=== PATIENT | male | born 1965 | race Hispanic/Latino ===

== ENCOUNTER 2017-08-03 16:06 | Outpatient (CLI) | payer BC ==
--- NOTE | 2017-08-04 08:05 | MRI ---
MRI OF LEFT KNEE PERFORMED WITHOUT CONTRAST ENHANCEMENT: HISTORY: Left knee pain x 1 year. FINDINGS: The anterior as well as posterior cruciate ligaments are intact. The lateral meniscus has a normal shape and appearance. There are fairly pronounced arthritic changes of the medial compartment of the knee. There is marked articular cartilage loss and there is joint space narrowing. There is also increased intrameniscal signal change within the posterior horn and body of the medial meniscus consistent with some internal mucoid degeneration and there is meniscal protrusion which would be compatible with loss of hoop str ength. There is subtle truncation and irregularity to the meniscal root. There is probably a small radial tear present in this region. In addition, the meniscocapsular junction of the posterior horn is very indistinct and shows increased signal change and near the junction of the posterior horn and body region there appears to be a more peripheral tear which occurs almost at the meniscocapsular jena ction and I believe that this tear actually extends from the superior articular surface into the junc tion of the posterior horn and body region of the meniscus. The medial and lateral collateral ligaments and iliotibial band regions are unremarkable. The patellar articular cartilage is intact. The median and lateral patellar retinaculum and quadrice ps and patellar tendons are normal. IMPRESSION: Marked arthritic changes of the medial compartment of the knee. This was associated with some change s of the medial meniscus including some internal mucoid degeneration. There also are edema changes a long the meniscocapsular junction of the posterior horn and body region and near the junction of the posterior horn and body, there appears to be a peripheral red zone tear contacting the more superior articular surface. In addition, there is some truncation to the root of the posterior horn of the me dial meniscus which I believe represents some element of a radial tear in this region. Associated wi th this is moderately severe medial compartment joint space narrowing. POS: [facility]
== END 2017-08-03 16:07 | disposition home or self-care (01) ==
LOC: MRI 16:06
PROVIDERS: ATTEND Orthopaedic Surgery
DX: M25.562 Pain in left knee (principal); M17.12 Unilateral primary osteoarthritis, left knee

== ENCOUNTER 2017-08-11 15:57 | Outpatient (CLI) | payer BC ==
[2017-08-11 17:23] LABS: #Basophils 0.1 thou/uL (0.0-0.2); #Eosinphils 0.1 thou/uL (0.0-0.7); #Lymphocytes 2.4 thou/uL (1.20-3.40); #Monocytes 0.5 thou/uL (0.11-0.59); #Neutrophils 3.3 thou/uL (1.40-6.50); %Basophils 0.9 % (0.0-1.0); %Lymphocytes 37.3 % (21.0-51.0); %Monocytes 7.9 % (0.0-10.0); %Neutrophils 51.9 % (42.0-75.0); Hemoglobin 14.9 g/dL (14.0-18.0); Mean Corpuscular HGB CONC 34.9 g/dL (32.0-36.0); Mean Corpuscular Hemoglobin 31.9 pg (27.0-31.0); Mean Corpuscular Volume 91.6 fl (80.0-94.0); Mean Platelet Volume 6.8 fL (7.4-10.4); Platelet Count 232 thou/uL (130-400); RBC Distribution Width 11.8 % (11.5-14.5); Red Blood Cell (RBC) Count 4.66 mill/uL (4.70-6.10); White Blood Cell (WBC) Count 6.4 thou/uL (4.8-10.8)
[2017-08-11 17:45] LABS: Anion Gap 13 mmol/L (10-20); BUN (Urea Nitrogen) 10 mg/dL (8.9-20.6); Calc. Creatinine Clearance 0 mL/min (70-130); Calcium 9.2 mg/dL (7.8-10.44); Carbon Dioxide 24 mmol/L (22-29); Chloride 107 mmol/L (98-107); Estimated GFR-MDRD Greater than 90; Glucose 97 mg/dL (70-105); Potassium 3.8 mmol/L (3.5-5.1); Sodium 140 mmol/L (136-145)
--- NOTE | 2017-08-14 08:50 | EKG ---
Test Reason : Blood Pressure : / mmHG Vent. Rate : 073 BPM Atrial Rate : 073 BPM P-R Int : 146 ms QRS Dur : 082 ms QT Int : 388 ms P-R-T Axes : 063 072 047 degrees QTc Int : 427 ms Normal sinus rhythm Normal ECG No previous ECGs available Confirmed by YANETH CLINE, DILMA ([id number]) on 08/14/2017 8:50:04 AM Referred By: GARY Confirmed By:DILMA WOLFE MD
== END 2017-08-11 15:58 | disposition home or self-care (01) ==
LOC: LABBT 15:57
PROVIDERS: ATTEND Orthopaedic Surgery
DX: Z01.818 Encounter for other preprocedural examination (principal); S83.242D Other tear of medial meniscus, current injury, left knee, subsequent encounter
CPT/HCPCS: 80048; 85025; 93005; 93010

== ENCOUNTER → 2017-08-19 | Day surgery (SDC) | payer BC ==
[2017-08-11 16:19] VITALS: BMI 25.7
[~2017-08-19] MED LIST: CEFAZOLIN/Water 2 GM/20 ML SYRINGE ONE; Fentanyl 100 MCG/2 ML VIAL ONE; Midazolam HCl 2 mg/2 ml Vial ONE; PROPOFOL 20 ML ONE
--- NOTE | 2017-08-19 10:08 | OP ---
DATE OF PROCEDURE: 08/19/2017 PREOPERATIVE DIAGNOSIS: Medial meniscus tear, left knee. POSTOPERATIVE DIAGNOSIS: Medial meniscus tear, left knee. PROCEDURE: Arthroscopic partial medial meniscectomy. SURGEON: Emmanuel Manrique M.D. ANESTHESIA: General. BLOOD LOSS: Minimal. SPECIMEN: None. DRAINS: None. COMPLICATIONS: None. 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 The rest of the joint was intact. Scope was placed in the lateral portal and pr obe was placed in the medial portal. I debrided the posterior medial meniscus using basket forceps a nd smoothed it using a 4-0 full radius resector. I probed the remaining meniscus and confirmed it wa s stable. I irrigated the knee so that a cartilaginous loose bodies would be washed out of the knee. Sterile dressings applied. There were no complications.
== END ==
LOC: SDC 06:30
PROVIDERS: ATTEND Orthopaedic Surgery
PROC: 0SBD4ZZ Excision of Left Knee Joint, Percutaneous Endoscopic Approach (ICD-10-PCS; principal; 2017-08-19)
DX: S83.242A Other tear of medial meniscus, current injury, left knee, initial encounter (principal); Z98.890 Other specified postprocedural states
CPT/HCPCS: G8978-GP-CL; G8979-GP-CL; G8980-GP-CL; J2250; J2704; J3010

== ENCOUNTER 2020-10-24 13:03 | Outpatient (CLI) | payer BC, OTHER ==
[2020-10-24 15:44] LABS: #Basophils 0.1 10x3/uL (0.0-0.2); #Eosinphils 0.1 10x3/uL (0.0-0.5); #Monocytes 0.6 10x3/uL (0.0-1.1); #Neutrophils 3.4 10x3/uL (1.5-8.4); %Eosinophils 2.1 % (0.0-6.0); %Monocytes 9.4 % (0.0-10.0); %Neutrophils 50.2 % (40.0-75.0); Hemoglobin 15.1 g/dL (13.5-17.5); Mean Corpuscular HGB CONC 36.5 g/dL (32.0-36.0); Mean Corpuscular Hemoglobin 32.4 pg (27.0-33.0); Mean Corpuscular Volume 88.8 fl (81.2-95.1); Mean Platelet Volume 9.8 fl (7.4-10.4); Platelet Count 245 10x3/uL (150-450); RBC Distribution Width 12.5 % (11.5-14.5); Red Blood Cell (RBC) Count 4.66 10x6/uL (4.32-5.72); White Blood Cell (WBC) Count 6.8 10x3/uL (3.5-10.5)
[2020-10-24 16:00] LABS: Anion Gap 14 mmol/L (10-20); BUN (Urea Nitrogen) 10 mg/dL (8.4-25.7); Calc. Creatinine Clearance 0 mL/min (70-130); Calcium 9.5 mg/dL (7.8-10.44); Carbon Dioxide 23 mmol/L (22-29); Chloride 108 mmol/L (98-107); Glucose 85 mg/dL (70-105); Potassium 4.1 mmol/L (3.5-5.1); Sodium 141 mmol/L (136-145)
== END 2020-10-24 13:04 | disposition home or self-care (01) ==
LOC: LABBT 13:03
PROVIDERS: ATTEND Orthopaedic Surgery
DX: Z01.818 Encounter for other preprocedural examination (principal); S83.242A Other tear of medial meniscus, current injury, left knee, initial encounter
CPT/HCPCS: 80048; 85025; 93005; 93010

== ENCOUNTER 2020-10-30 06:21 | Day surgery (SDC) | payer OTHER ==
[2020-10-29 10:21] VITALS: BMI 25.7
[2020-10-30] MEDS ORDERED: PROPOFOL 20 ML ONE (06:54)
[2020-10-30] MEDS ORDERED: Fentanyl 100 MCG/2 ML VIAL ONE (07:04)
[2020-10-30] MEDS ORDERED: Famotidine/PF 20 mg/2ml Vial ONE (07:06)
[2020-10-30] MEDS ORDERED: Glycopyrrolate 0.2 MG/ML 5 ML SYRINGE ONE (07:30)
[2020-10-30] MEDS ORDERED: Rocuronium Bromide 10 MG/ML (10ML VIAL) ONE (07:30)
[2020-10-30] MEDS ORDERED: Dexamethasone 20 MG/5 ML VIAL ONE (07:30)
[2020-10-30] MEDS ORDERED: Metoclopramide HCl 10 MG/2 ML VIAL ONE (07:30)
[2020-10-30] MEDS ORDERED: Bupivacaine HCl 0.5%/Epinephrine 1:200,000/PF 30 ml Vial ONE (07:30)
[2020-10-30] MEDS ORDERED: Lidocaine 1% PF 5 ML VIAL ONE (07:30)
[2020-10-30] MEDS ORDERED: PROPOFOL 200 MG/20 ML VIAL ONE (07:30)
[2020-10-30] MEDS ORDERED: Ondansetron PF 4 MG/2 ML Vial ONE (07:30)
[2020-10-30] MEDS ORDERED: Promethazine HCl 25 MG/ML VIAL ONE (08:22)
[2020-10-30] MEDS ORDERED: Meperidine HCl/PF 25 MG/ML VIAL ONE (09:01)
== END 2020-10-30 11:54 | disposition home or self-care (01) ==
LOC: SDC 06:21
PROVIDERS: ATTEND Orthopaedic Surgery
PROC: 0SBD4ZZ Excision of Left Knee Joint, Percutaneous Endoscopic Approach (ICD-10-PCS; principal; 2020-10-30)
DX: S83.232A Complex tear of medial meniscus, current injury, left knee, initial encounter (principal); M94.262 Chondromalacia, left knee; F17.210 Nicotine dependence, cigarettes, uncomplicated; Z79.899 Other long term (current) drug therapy; Z88.3 Allergy status to other anti-infective agents; X50.1XXA Overexertion from prolonged static or awkward postures, initial encounter; Y99.0 Civilian activity done for income or pay
CPT/HCPCS: J0690; J1100; J2175; J2405; J2550; J2704; J2765; J3010; S0028